=== PATIENT | female | born 1965 | race Caucasian/White ===

== ENCOUNTER 2016-04-04 12:15 | Emergency (ER) | payer OTHER ==
[2016-04-04 12:31] VITALS: TEMP 98.6; O2SAT 99
--- NOTE | 2016-04-04 12:58 | ED.PDOC ---
History of Present Illness - General Chief Complaint: Abdominal Pain Stated Complaint: abdominal discomfort Time Seen by Provider: 04/04/16 12:26 Information Source: patient, RN notes reviewed, Vital Signs reviewed, family Exam Limitations: no limitations - History of Present Illness Initial Comments: This 50 y/o female bent over last night and since has had severe LLQ pain which radiates to her left flank. She also has nausea when she stands. No vomiting. Abdominal Pain Onset Location: LLQ Pain Radiation: flank Quality: stabbing Timing/Duration: other - since last night\ Improving Factors: immobilization Worsening Factors: movement, other - standing Associated Symptoms: back pain, nausea/vomiting Review of Systems - Review of Systems Constitutional: States: chills, fever EENTM: States: no symptoms reported Respiratory: States: no symptoms reported Cardiology: States: no symptoms reported Gastrointestinal/Abdominal: States: abdominal pain, nausea Genitourinary: States: no symptoms reported Musculoskeletal: States: back pain Skin: States: no symptoms reported Neurological: States: no symptoms reported Endocrine: States: no symptoms reported Hematologic/Lymphatic: States: no symptoms reported Past Medical History (General) - Patient Medical History Hx Stroke: No Hx Congestive Heart Failure: No Hx Hypertension: Yes Hx Diabetes: Yes Hx Cancer: Yes - lymph node removal for lymphoma Hx MRSA: No - Vaccination History Hx Influenza Vaccination: No Hx Pneumococcal Vaccination: No - Social History Hx Tobacco Use: No Family Medical History - Family History Mother Living Status: Still Living Hx Family Hypertension: Yes Hx Family Cancer: Yes - Breast Physical Exam - Physical Exam General Appearance: Alert, Obvious distress, Well Groomed Eyes, Ears, Nose, Throat Exam: normal ENT inspection Respiratory: lungs clear, normal breath sounds, no respiratory distress, no accessory muscle use Cardiovascular/Chest: regular rate, rhythm, no edema, no murmur Gastrointestinal/Abdominal: normal bowel sounds, non tender, soft Back Exam: normal inspection, no CVA tenderness, no vertebral tenderness Extremity: normal range of motion, normal inspection Neurologic: alert, normal mood/affect, oriented x 3 Skin Exam: normal color, warm/dry Progress - Results/Orders Results/Orders: 04/04/16 12:24 Temperature 98.6 F Pulse Rate [ 89 Left Radial] Respiratory 18 Rate Blood Pressure 119/69 [Left Arm] O2 Sat by Pulse 99 Oximetry Laboratory Results WBC 6.3 K/mm3 (4.8-10.8) 04/04/16 12:48 RBC 4.49 M/mm3 (4.20-5.40) 04/04/16 12:48 Hgb 13.5 gm/dL (12.0-16.0) 04/04/16 12:48 Hct 40.6 % (36.0-47.0) 04/04/16 12:48 MCV 90.4 fl (81.0-99.0) 04/04/16 12:48 MCH 30.0 pg (27.0-31.0) 04/04/16 12:48 MCHC 33.3 g/dL (33.0-37.0) 04/04/16 12:48 RDW 13.5 % (11.5-14.5) 04/04/16 12:48 Plt Count 210 K/mm3 (130-400) 04/04/16 12:48 MPV 8.6 fl (7.40-10.4) 04/04/16 12:48 Absolute Neuts (auto) 5.10 K/uL (1.8-6.8) 04/04/16 12:48 Absolute Lymphs (auto) 0.90 K/uL (1.0-3.4) L 04/04/16 12:48 Absolute Monos (auto) 0.30 K/uL (0.2-0.8) 04/04/16 12:48 Absolute Eos (auto) 0.00 K/uL (0.0-0.4) 04/04/16 12:48 Absolute Basos (auto) 0.00 K/uL (0.0-0.1) 04/04/16 12:48 Neutrophils % 80.5 % (42.0-78.0) H 04/04/16 12:48 Lymphocytes % 14.5 % (20.0-50.0) L 04/04/16 12:48 Monocytes % 4.2 % (2.0-9.0) 04/04/16 12:48 Eosinophils % 0.4 % (1.0-5.0) L 04/04/16 12:48 Basophils % 0.4 % (0.0-2.0) 04/04/16 12:48 Sodium 136 mmol/L (135-145) 04/04/16 12:48 Potassium 3.5 mmol/L (3.6-5.0) L 04/04/16 12:48 Chloride 100 mmol/L (101-111) L 04/04/16 12:48 Carbon Dioxide 28 mmol/L (21-31) 04/04/16 12:48 Anion Gap 11.5 (12-18) L 04/04/16 12:48 BUN 15 mg/dL (7-18) 04/04/16 12:48 Creatinine 0.72 mg/dL (0.6-1.3) 04/04/16 12:48 BUN/Creatinine Ratio 20.8 (10-20) H 04/04/16 12:48 Random Glucose 119 mg/dL (70-105) H 04/04/16 12:48 Serum Osmolality 273.9 mOsm/L (275-295) L 04/04/16 12:48 Calcium 9.7 mg/dL (8.4-10.2) 04/04/16 12:48 Total Bilirubin 0.8 mg/dL (0.2-1.0) 04/04/16 12:48 AST 25 IU/L (10-42) 04/04/16 12:48 ALT 25 IU/L (10-60) 04/04/16 12:48 Alkaline Phosphatase 44 IU/L (42-121) 04/04/16 12:48 Serum Total Protein 6.7 gm/dL (6.4-8.2) 04/04/16 12:48 Albumin 4.0 g/dl (3.2-5.5) 04/04/16 12:48 Globulin 2.7 gm/dL (2.3-3.5) 04/04/16 12:48 Albumin/Globulin Ratio 1.5 (1.1-1.9) 04/04/16 12:48 Urine Color Yellow (Yellow) 04/04/16 13:43 Urine Appearance Clear (Clear) 04/04/16 13:43 Urine pH 7.0 (4.5-7.8) 04/04/16 13:43 Ur Specific [place] 1.015 (1.005-1.030) 04/04/16 13:43 Urine Protein Negative mg/dL 04/04/16 13:43 Urine Glucose (UA) Negative mg/dL (Negative) 04/04/16 13:43 Urine Ketones Negative mg/dL (NEGATIVE) 04/04/16 13:43 Urine Blood Trace-intact (Negative) H 04/04/16 13:43 Urine Nitrite Negative 04/04/16 13:43 Urine Bilirubin Negative (NEGATIVE) 04/04/16 13:43 Urine Urobilinogen 0.2 mg/dL (0.2-1.0) 04/04/16 13:43 Ur Leukocyte Esterase Negative (Negative) 04/04/16 13:43 Urine RBC 3-5 /hpf H 04/04/16 13:43 Urine WBC 1-3 /hpf 04/04/16 13:43 Ur Epithelial Cells 5-10 /hpf 04/04/16 13:43 Urine Bacteria 2+ H 04/04/16 13:43 - EKG/XRAY/CT CT: Abd/Pelvis: No obvious cause for pain--nml CT Ordered: Yes CT Interpretation Call Back: No - Report sent CT Interpretation Call Back Date: 04/04/16 CT Interpretation Call Back Time: 16:05 Departure - Departure Clinical Impression: Strain of left hip Qualifiers: Encounter type: initial encounter Qualifier Code: (S76.012A) Strain of muscle, fascia and tendon of left hip, initial encounter Time of Disposition: 16:36 Disposition: Discharge to Home or Self Care Departure Forms: ED Discharge - Pt. Copy, Patient Portal Self Enrollment Diet: resume usual diet Prescriptions: Metaxalone 800 mg PO TID PRN #30 tab PRN Reason: Pain Home Medications: Ambulatory Orders Acyclovir [Zovirax] 400 mg PO BID PRN 04/04/16 Hydrochlorothiazide 25 mg PO DAILY 04/04/16 Metaxalone 800 mg PO TID PRN #30 tab 04/04/16 metFORMIN HCL [Glucophage] 500 mg PO DAILY 04/04/16 Additional Instructions: Follow up with PCP if symptoms persist or worsen
[2016-04-04] MEDS ORDERED: KETOROLAC TROMETHAMINE INJ 60 MG/2 ML VIAL IM ONE (15:18)
--- NOTE | 2016-04-04 16:02 | CT ---
EXAM DESCRIPTION: CT ABDOMEN AND PELVIS WITHOUT INTRAVENOUS CONTRAST CLINICAL HISTORY: Left flank pain and hematuria. COMPARISON: None TECHNIQUE: CT of the abdomen and pelvis was performed without intravenous contrast. Oral contrast was not given. FINDINGS: The lung bases included on the exam demonstrate no acute findings. The liver, gallbladder, pancreas, spleen and the bilateral adrenal glands are normal in appearance, given the limitation of the lack of IV contrast. The kidneys reveal no evidence of calculi or hydronephrosis. The bilateral ureters are unremarkable. The urinary bladder is unremarkable. The small bowel is unremarkable. There is no CT evidence of acute appendicitis There is no CT evidence of acute diverticulitis, colitis or large bowel obstruction. There is no pathological retroperitoneal or pelvic lymphadenopathy, free fluid or free air. There is no clinically significant aneurysmal dilatation of the abdominal aorta. There is no CT evidence of any clinically significant inguinal or ventral hernia. The uterus appears to be surgically absent. The visualized lower thoracic and the lumbar spine shows underlying multilevel mild degenerative change. The remainder of the pelvic structures appear unremarkable. IMPRESSION: There are no acute or significant findings on the current study Electronically signed by: Evelio Freeman MD 04/04/2016 16:00
[2016-04-04 16:44] VITALS: BP 124/68
== END 2016-04-04 16:45 | disposition home or self-care (01) ==
LOC: ER 12:15
DX: S76.012A Strain of muscle, fascia and tendon of left hip, initial encounter (principal); I10 Essential (primary) hypertension; E11.9 Type 2 diabetes mellitus without complications; Z85.72 Personal history of non-Hodgkin lymphomas; X58.XXXA Exposure to other specified factors, initial encounter

== ENCOUNTER → 2016-12-11 | Outpatient (CLI) | payer SELFPAY | END | disposition home or self-care (01) | LOC: LAB.O 13:36 | PROVIDERS: ATTEND Nurse Practitioner Family | DX: R19.7 Diarrhea, unspecified (principal) ==

== ENCOUNTER → 2018-02-11 | Outpatient (CLI) | payer OTHER ==
--- NOTE | 2018-02-11 17:15 | RAD ---
EXAM DESCRIPTION: Abdomen 1 View CLINICAL HISTORY: 52 years Female KIDNEY STONE COMPARISON: None. TECHNIQUE: Single view of the abdomen. FINDINGS: The upper abdomen was not entirely included on the film. No dilated loops of bowel to suggest obstruction. Moderately large amount of fecal material in the colon. Psoas margins are well-defined. IMPRESSION: No definite calculus is noted. Consider further evaluation with CT stone protocol Electronically signed by: Felicia Justice MD 02/11/2018 5:14 PM GAS ANALYST
== END ==
LOC: LAB.O 14:12
PROVIDERS: ATTEND Nurse Practitioner Family
DX: N20.1 Calculus of ureter (principal); N39.0 Urinary tract infection, site not specified